=== PATIENT | male | born 1985 | race Caucasian/White ===

== ENCOUNTER 2017-02-18 13:01 | Emergency (ER) | payer OTHER ==
[~2017-02-18] VITALS: Ht 175.3 cm; Wt 65.4 kg
[~2017-02-18 13:01] MED LIST: ANUCORT-HC25 MG PR
[2017-02-18] MEDS ORDERED: BACTRIM,SEPT1 TABLET PO (16:20)
[2017-02-18 16:43] VITALS: BP 124/82
== END 2017-02-18 16:44 | disposition home or self-care (01) ==
LOC: EME 13:01
PROC: 0H9DXZZ Drainage of Right Lower Arm Skin, External Approach (ICD-10-PCS; principal; 2017-02-18)
DX: L02.413 Cutaneous abscess of right upper limb (principal); L03.113 Cellulitis of right upper limb; M79.601 Pain in right arm; Z88.0 Allergy status to penicillin
CPT/HCPCS: 73090; 99281; 99284; J1885